=== PATIENT | female | born 1970 | race Asian ===

== ENCOUNTER 2023-01-05 14:36 | Emergency (ER) | payer SELFPAY ==
[~2023-01-05] VITALS: Ht 157.5 cm; Wt 77.1 kg
[2023-01-05 14:38] VITALS: BP 167/88
--- NOTE | 2023-01-05 14:48 | NUR ---
52 YO FEMALE PRESENTS THE ED WITH COMPLAINT OF RIGHT INDEX FINGER PAIN. PATIENT STATES SHE WAS BRINGING DAUGHTER TO URGENT CARE WHEN SHE SLAMMED FINGER CLOSING CAR DOOR. 5/10 THROBBING PAIN.
[2023-01-05] MEDS ORDERED: IBUPROFEN 600 MG TAB PO ONE (15:00)
[2023-01-05] MEDS ORDERED: BACITRACIN OINT 500 UNITS/GM PKT TP ONE (15:00)
[2023-01-05] MEDS ORDERED: BACI-416 TP (15:26)
[2023-01-05] MEDS ORDERED: IBUP-2213 PO (15:26)
--- NOTE | 2023-01-05 16:07 | NUR ---
Patient discharged with v/s stable. Written and verbal after care instructions given and explained. Patient alert, oriented and verbalized understanding of instructions. Ambulatory with steady gait. All questions addressed prior to discharge. ID band removed. Patient advised to follow up with PMD. Rx of BACITRACIN, IBUPROFEN given. Patient educated on indication of medication including possible reaction and side effects. Opportunity to ask questions provided and answered.
== END 2023-01-05 16:06 | disposition home or self-care (01) ==
LOC: MED 14:36
DX: S62.660A Nondisplaced fracture of distal phalanx of right index finger, initial encounter for closed fracture (principal); I10 Essential (primary) hypertension; Z79.899 Other long term (current) drug therapy; W22.8XXA Striking against or struck by other objects, initial encounter; Y93.89 Activity, other specified; Y92.89 Other specified places as the place of occurrence of the external cause; Y99.8 Other external cause status
CPT/HCPCS: 29130; 73140; 90471; 90715; 99283; Q0092